=== PATIENT | female | born 1955 | race Caucasian/White ===

== ENCOUNTER → 2019-11-27 | Outpatient (CLI) | payer MEDICARE ==
--- NOTE | 2019-11-28 10:22 | MR ---
EXAMINATION TYPE: MR iac wo/w con DATE OF EXAM: 11/27/2019 COMPARISON: NONE HISTORY: Right asymmetrical sensory neural hearing loss TECHNIQUE: Multiplanar, multisequence images of the brain and brainstem is performed without and with IV contras t, utilizing 7 mL intravenous Gadavist . FINDINGS: Diffusion weighted images demonstrate no evidence of a recent infarct or other diffusion ab normality. There is no extra-axial fluid collection. There are scattered foci of T2/FLAIR hyperinten sity in the subcortical and periventricular white matter. Overall mild burden for the patient's age. These are most pronounced in the periatrial white matter. There is a extra-axial nonenhancing 1.0 x 0 .7 cm lesion posterior lateral to the right cerebellar hemisphere. As not included on the coronal estefani ges and is also not scanned on the sagittal images. The ventricular system and cisternal spaces are s ymmetrically prominent compatible with age-related volume loss Partially empty sella turcica is seen. The craniocervical junction appears within normal limits. Pos t contrast images demonstrate no abnormal enhancement. The dural venous sinuses appear patent. The vi sualized sinuses demonstrate moderate mucosal thickening in a circumferential of the left maxillary s inus and mild mucosal thickening in the right maxillary sinus with an air-fluid level. Mild mucosal t hickening extends into the ethmoid sinuses and inferior right frontal sinus. Sphenoid sinuses are wel l aerated. Fluid is seen bilaterally near the petrous apices with cystic dilatation near Meckel's cav e.. Trace amount of fluid is seen in the mastoid air cells, right greater than left. There is no abnormal enhancement of the 7th or 8th cranial nerve complex. No evidence of acoustical n euroma. No cerebellar pontine angle mass. IMPRESSION: 1. No evidence of acoustic trauma. No abnormal enhancement of the 7th or 8th cranial nerves bilateral ly. No cerebellar pontine angle mass. 2. Trace amount of fluid in the bilateral mastoid air cells, right greater than left. Bilateral josi us apex fluid is also seen with cystic dilatation near Meckel's cave. 3. Moderate paranasal sinus disease throughout. 4. Partially visualized nonenhancing fluid intensity nonaggressive appearing extra-axial 1.0 cm lesio n posterior lateral to the right cerebellar hemisphere.
== END | disposition home or self-care (01) ==
LOC: RADMRIMAIN 13:50
PROVIDERS: ATTEND Otolaryngology
DX: G93.89 Other specified disorders of brain (principal); H90.42 Sensorineural hearing loss, unilateral, left ear, with unrestricted hearing on the contralateral side
CPT/HCPCS: 70553; A9585

== ENCOUNTER 2020-06-04 06:20 | Day surgery (SDC) | payer MEDICARE, OTHER ==
[2020-06-03 10:02] VITALS: BMI 24.2
[~2020-06-04 06:20] MED LIST: ACETAMINOPHEN TAB 500 MG TAB PO ONE; FAMOTIDINE 20 MG/2 ML VIAL IV PRN; HEPARIN SODIUM,PORCINE 5,000 UNIT/ML 1 ML VIAL SQ ONE; HYDROmorphone 0.5 MG/0.5 ML SYRINGE IVP PRN; LACTATED RINGERS 1,000 ML IV SCH; LIDOCAINE 1% (10MG/ML) FOR IV START INTRADERMA PRN; ONDANSETRON 4 MG/2 ML VIAL IVP PRN
[2020-06-04] MEDS ORDERED: LIDOCAINE 1% INJ 10MG/ML (20 ML MDV) ONE (07:35)
[2020-06-04] MEDS ORDERED: MIDAZOLAM 2 MG/2 ML VIAL ONE (07:35)
[2020-06-04] MEDS ORDERED: NEOSTIGMINE 1 MG/ML 10 ML VIAL ONE (07:35)
[2020-06-04] MEDS ORDERED: PROPOFOL 10 MG/ML 20 ML VIAL IV ONE (07:35)
[2020-06-04] MEDS ORDERED: fentaNYL (PF) 50 MCG/ML 2 ML AMP ONE (07:35)
[2020-06-04] MEDS ORDERED: SUCCINYLCHOLINE CHLORIDE 100 MG/5 ML SYR IV ONE (07:35)
[2020-06-04] MEDS ORDERED: GLYCOPYRROLATE 0.2 MG/ML 2 ML VIAL ONE (07:35)
[2020-06-04] MEDS ORDERED: ePHEDrine SULFATE/0.9% NACL/PF 50 MG/5 ML SYRINGE IV ONE (07:35)
[2020-06-04] MEDS ORDERED: ROCURONIUM BROMIDE 10 MG/ML 5 ML VIAL IV ONE (07:35)
[2020-06-04] MEDS ORDERED: LIDOCAINE 1%-EPI 1:100,000 20 ML VIAL SQ ONE (07:59)
[2020-06-04 08:24] VITALS: TEMP 97
--- NOTE | 2020-06-04 08:25 | P.GSHP ---
History of Present Illness H&P Date: 06/04/20 Chief Complaint: Right upper quadrant pain Is a 65-year-old female in pain. Her recent culture shows evidence of cholelithiasis. She presents today for laparoscopic cholecystectomy Past Medical History Past Medical History: Asthma, GERD/Reflux Additional Past Medical History / Comment(s): seasonal allergies History of Any Multi-Drug Resistant Organisms: None Reported Past Surgical History: Tonsillectomy, Uterine Ablation Additional Past Surgical History / Comment(s): lt breast biopsy, meena cataract surgery Past Anesthesia/Blood Transfusion Reactions: No Reported Reaction, Motion Sickness Smoking Status: Never smoker - Past Family History Father Family Medical History: Cancer Additional Family Medical History / Comment(s): melanoma Medications and Allergies Home Medications Medication Instructions Recorded Confirmed Type Albuterol Inhaler [Ventolin Hfa 1 puff INHALATION DAILY PRN 06/03/20 06/04/20 History Inhaler] Ascorbic Acid [Vitamin C] 500 mg PO DAILY 06/03/20 06/04/20 History Calcium Carbonate [Calcium] 600 mg PO DAILY 06/03/20 06/04/20 History Curcumin 1 tab PO DAILY 06/03/20 06/04/20 History Elderberry Fruit and Flower [Black 1 each PO DAILY 06/03/20 06/04/20 History Elderberry 575 mg Cap] [place]-3 Fatty Acids/Fish Oil [Fish 1 each PO DAILY 06/03/20 06/04/20 History Oil 1,000 mg Softgel] Omeprazole 20 mg PO DAILY PRN 06/03/20 06/04/20 History Turmeric Root Extract [Turmeric] 500 mg PO DAILY 06/03/20 06/04/20 History Ubidecarenone [Co Q-10] 1 tab PO DAILY 06/03/20 06/04/20 History Vitamin B Complex 1 each PO DAILY 06/03/20 06/04/20 History Zinc 50 mg PO DAILY 06/03/20 06/04/20 History Allergies Allergy/AdvReac Type Severity Reaction Status Date / Time latex Allergy Rash/Hives Verified 06/03/20 09:40 Surgical - Exam Vital Signs Temp Pulse Resp BP Pulse Ox 96.6 F L 70 16 175/75 98 06/04/20 06:54 06/04/20 06:54 06/04/20 06:54 06/04/20 06:54 06/04/20 06:54 - General well developed, well nourished, no distress - Eyes PERRL - ENT normal pinna - Neck no masses - Respiratory normal expansion - Cardiovascular Rhythm: regular - Abdomen Abdomen: soft Assessment and Plan Assessment: Cholelithiasis Chronic cholecystitis We'll perform laparoscopic cholecystectomy
--- NOTE | 2020-06-04 08:34 | P.OP ---
Date of Procedure: 06/04/20 Preoperative Diagnosis: Cholecystitis Postoperative Diagnosis: Cholecystitis Procedure(s) Performed: Laparoscopic cholecystectomy Anesthesia: LUCIO Surgeon: Bairon Sutton Estimated Blood Loss (ml): 5 Pathology: other (Gallbladder) Condition: stable Disposition: PACU Description of Procedure: The patient was placed on the operating table. The patient received a general endotracheal tube anesthesia. The patients abdomen was prepped and draped in the usual sterile fashion. Through an infraumbilical stab incision, the fascia of the anterior abdominal wall was grasped with a pair of Kochers and then the Veress needle was placed in the peritoneal cavity. Position of the Veress needle was confirmed with positive drop test. The abdomen was then insufflated. After adequate insufflation, the 10 mm trocar was placed in the peritoneal cavity. Following this the laparoscope was placed in the peritoneal cavity. The patient was placed in the head-up, right side up position and then a 5 mm trocar was placed in the right lateral and right subcostal position under direct visualization. A 8 mm trocar was placed in the epigastric position. The gallbladder was grasped in the fundus and infundibulum. Traction on the gallbladder was placed in the lateral and the cephalad positions. The triangle of Calot was visualized.. The cystic duct was bluntly dissected until the union of the cystic duct and common bile duct was seen. A critical view of safety was achieved. The cystic duct was then divided and sealed with the Harmonic scissors. A PDS Endoloop was then placed throughout the cystic duct stump. The cystic artery divided and sealed with the Harmonic scissors. The gallbladder was then removed from the liver bed using Harmonic scissors. The gallbladder was then extracted through the epigastric port site. Operative field was checked for any bleeding spots and Harmonic scissors was used to coagulate the liver bed. The abdomen was irrigated. The trocars were removed. The skin was closed using interrupted 3-0 Vicryl suture. Dermabond dressing were applied. The patient tolerated the procedure well.
[2020-06-04 10:04] VITALS: BP 145/66; PULSE 60; RESP 16
== END 2020-06-04 10:55 | disposition home or self-care (01) ==
LOC: OR 06:20
PROVIDERS: ATTEND Surgery
DX: K81.1 Chronic cholecystitis (principal); J45.909 Unspecified asthma, uncomplicated; K21.9 Gastro-esophageal reflux disease without esophagitis; Z91.040 Latex allergy status; Z90.89 Acquired absence of other organs; Z98.890 Other specified postprocedural states; Z79.899 Other long term (current) drug therapy; Z80.8 Family history of malignant neoplasm of other organs or systems
CPT/HCPCS: 88304; 47562; J2250; J1644; J2710; J0690; J2405; J2001; J3010; J0330; J2704

== ENCOUNTER → 2020-07-17 | Outpatient (CLI) | payer MEDICARE ==
--- NOTE | 2020-07-17 11:12 | FL ---
EXAMINATION TYPE: FL UGI air w esophagus DATE OF EXAM: 07/17/2020 CLINICAL HISTORY: GERD per order. Persistent epigastric pain and reflux-like symptoms, early satiety. No relief after recent gallbladder surgery. TECHNIQUE: A double contrast UGI study is performed. 0.46 minutes of fluoro time and 63 images obta ined. 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 The esophagus shows satisfactory motility and emptying into the stomach when drinking upright. Mild d elay when drinking in prone position No evidence of fixed hiatal hernia or stricture noted. The stomach shows satisfactory distensibility with mild to moderate diffuse gastric fold prominence g reatest in the fundus. No evidence of any intraluminal mass or ulcer disease. Moderate to severe mul tiple episodes gastroesophageal reflux into the distal one half of the esophagus noted during real ti me performance of this study. The duodenal bulb, sweep, and proximal small bowel loops are unremarkable. IMPRESSION: [id number] diffuse gastritis with moderate to severe gastroesophageal reflux.
== END | disposition home or self-care (01) ==
LOC: RADUSWWP 08:45
PROVIDERS: ATTEND Surgery
DX: K21.9 Gastro-esophageal reflux disease without esophagitis (principal); K29.70 Gastritis, unspecified, without bleeding
CPT/HCPCS: 74246

== ENCOUNTER → 2023-01-14 | Outpatient (CLI) | payer MEDICARE, OTHER ==
--- NOTE | 2023-01-17 08:36 | MM ---
Reason for Exam: Screening (asymptomatic). Last mammogram was performed 1 year(s) and 1 month(s) ago. Patient History: Menarche at age 12. First Full-Term at age 18. Postmenopausal. Progesterone for 1 year from age 49 until age 50. Risk Values: Berkley 5 year model risk: 1.2%. NCI Lifetime model risk: 4.0%. Prior Study Comparison: 11/30/2004 Bilateral Screening Mammogram, [facility]. 12/08/2005 Bilateral Diagnostic Mammogram, [facility]. 12/14/2006 Bilateral Screening Mammogram, [place]. Tissue Density: There are scattered fibroglandular densities. Findings: Analyzed By CAD. Left breast biopsy clip. There is no suspicious group of microcalcifications or new suspicious mass in either breast. Overall Assessment: Benign, BI-RAD 2 Management: Screening Mammogram of both breasts in 1 year. A clinical breast exam by your physician is recommended on an annual basis and results should be correlated with mammographic findings. [facility] will attempt to contact patient to return for supplemental views and ultrasound if indicated. Electronically signed and approved by: Daryl Holley DO
== END | disposition home or self-care (01) ==
LOC: RADMAMWWP 10:51
PROVIDERS: ATTEND Family Medicine
DX: Z12.31 Encounter for screening mammogram for malignant neoplasm of breast (principal); Z78.0 Asymptomatic menopausal state
CPT/HCPCS: 77063; 77067